=== PATIENT | female | born 1975 | race Caucasian/White ===

== ENCOUNTER 2022-06-07 17:40 | Emergency (ER) | payer MEDICARE ==
[~2022-06-07] VITALS: Ht 152.4 cm; Wt 74.8 kg
[2022-06-07] MEDS ORDERED: PRED20 PO (18:17)
[2022-06-07] MEDS ORDERED: AMOCLA875 PO (18:17)
== END 2022-06-07 19:37 | disposition home or self-care (01) ==
LOC: ER 17:40
DX: K02.9 Dental caries, unspecified (principal); F17.200 Nicotine dependence, unspecified, uncomplicated
CPT/HCPCS: A9270; J1100